=== PATIENT | male | born 1945 | race Hispanic/Latino ===

== ENCOUNTER 2018-08-07 17:26 | Inpatient (IN) | payer MEDICARE, OTHER ==
[~2018-08-07 17:26] MED LIST: ceFAZolin 1 GM in Sodium Chloride 0.9% 100 ML IVPB ONE
--- NOTE | 2018-08-07 18:46 | ED PDOC ---
Upper Extremity Pain/Injury Time Seen by Provider: 08/07/18 18:00 Chief Complaint (Nursing): Finger,Hand,&Wrist Chief Complaint (Provider): Finger,Hand,&Wrist History Per: Patient History/Exam Limitations: no limitations Onset/Duration Of Symptoms: Hrs (x1) Current Symptoms Are (Timing): Still Present Additional Complaint(s): Patient is a 73 y/o male with no significant past medical history who presents to the ED for evaluation of left wrist and elbow injury s/p a fall an hour prior to arrival. Patient was stepping up onto a curb when he slipped on the snow and landed on his left arm. Patient reports swelling to both joints. Patient scales the pain in wrist as an 8/10 and the pain in elbow as a 6/10. Patient states since fall he has not been bale to move wrist and has not taken any medication for relief. Patient is right hand dominant. No other complaints. Denies head injury or LOC. No prior elbow or wrist surgery. PCP: Dr. Nicole Collins ([facility]) Past Medical History Reviewed: Historical Data, Nursing Documentation, Vital Signs Vital Signs: Last Vital Signs Temp 98 F 08/07/18 17:55 Pulse 98 H 08/07/18 17:55 Resp 20 08/07/18 17:55 BP 209/87 H 08/07/18 17:55 Pulse Ox 98 08/07/18 17:55 - Medical History PMH: No Chronic Diseases - Surgical History Surgical History: No Surg Hx - Family History Family History: States: No Known Family Hx - Home Medications Home Medications: Ambulatory Orders Medication Instructions Recorded RX: No Known Home Med 08/07/18 - Allergies Allergies/Adverse Reactions: Allergies Allergy/AdvReac Type Severity Reaction Status Date / Time No Known Allergies Allergy Verified 08/07/18 17:54 Review of Systems ROS Statement: Except As Marked, All Systems Reviewed And Found Negative Musculoskeletal: Positive for: Arm Pain (left wrist and elbow swelling/pain) Physical Exam - Reviewed Nursing Documentation Reviewed: Yes Vital Signs Reviewed: Yes - Physical Exam Comments: GENERAL APPEARANCE: Patient is awake, alert, oriented x 3, uncomfortable appearing. SKIN: Warm, dry; (-) cyanosis. ENMT: Mucous membranes moist. Airway patent, (-) stridor. NECK: Supple, FROM CHEST AND RESPIRATORY: (-) rales, (-) rhonchi, (-) wheezes; breath sounds equal bilaterally. Respirations even and nonlabored. HEART AND CARDIOVASCULAR: (-) irregularity Left Wrist: (+) large effusion (+) diffuse tenderness (-) ROM secondary to pain (-) ecchymosis, (-) erythema (-) skin break. Digits and hand are non-tender with no deformity. Sensation intact throughout. Cap refill intact. (+) pulses. Left Elbow: (+)moderate effusion (+) tenderness to lateral and posterior aspects of elbow (+) decreased ROM secondary to pain (-) crepitus (-) erythema (-) ecchymosis. Sensation intact throughout (+) pulses. NEURO AND PSYCH: Mental status as above; (-) focal findings. Gait: steady. Speech: clear. (-) facial asymmetry (-) aphasia. - Laboratory Results Result Diagrams: 08/07/18 21:14 08/07/18 21:14 - ECG O2 Sat by Pulse Oximetry: 98 (RA) Pulse Ox Interpretation: Normal Medical Decision Making Medical Decision Making: Time: 1809 Impression: Acute wrist and elbow injury s/p fall Plan: Ultram 100 mg PO Elbow Left 3 Views Routine [Rad] Wrist, Left 3 Views [Rad] Re-evaluation 1899 Wrist XR: (+) comminuted, displaced distal radius fracture as read by Fabian CUI Elbow XR: possible supracondylar fracture as read by Fabian CUI Case discussed with ED MD Owens who recommends CT elevation of both joints. Patient declining additional pain medication on re-evaluation. Reports no other complaints at this time. [address] Time: [address] scan. Requesting additional pain medication. IV access established. 1L NS, Zofran 4mg IVP, and Morphine 2mg IVP ordered. Time: [address] Bowser, who recommends long arm posterior splint and sugartong splint to left upper extremity. Admission to hospitalist. Consult placed to hospitalist. Repeat BP: 129/59 Repeat HR: 65 Time: 2049 Case discussed with hospitalist, Dr Coleman. Agreeable to admission. Arrangements made for admission to med/surg. Patient agreeable to admission. sales and service technician Miriam at bedside to place splint. Pre-op labs ordered. CXR, EKG ordered. NPO past midnight. 2109 CT reviewed, [facility] radiology report follows EXAM: CT left Elbow, without IV contrast CLINICAL HISTORY: Displaced lt wrist fx. r/o elbow fx TECHNIQUE: Axial images were acquired through the left elbow without IV contrast. Reformatted images were reviewed. 580.85 mGy-cm COMPARISON: Compared with radiographic evaluation of the left elbow and wrist performed earlier the same date. FINDINGS: BONES: An area of false intra-articular fracture is seen to involve the coronoid process of the ulna. A comminuted partially impacted fracture of the distal left radius is again noted. There is dorsal tilting of the distal radial fracture fragments relative to the radial diaphysis. JOINTS: There is posterior inferior displacement of the trochlear notch/olecranon process relative to the distal humerus. Associated hemarthrosis is present within the elbow joint. SOFT TISSUES: The soft tissues are unremarkable. IMPRESSION: 1. An intra-articular avulsion fracture is seen to involve the coronoid process of the ulna. 2. Posterior inferior displacement of the trochlear notch/olecranon process relative to the distal humerus. 3. Associated hemarthrosis within the joint space. 4. Comminuted partially impacted fracture of the distal radius. Electronically signed on Aug 07, 2018 9:10:10 PM EST by: Uli Rowan M.D., JORGE Certified By [facility] Fellowship Trained MRI and CT Specialist 2134 Splint/sling placement verified by Fabian CUI. NV intact s/p placement. 2214 EKG: NSR @ 76bpm, QTc 495, (+) LAD (+) LBBB Scribe Attestation: Documented by Brendan Leos, acting as a scribe for MONIE Soto. Provider Scribe Attestation: All medical record entries made by the Scribe were at my direction and personally dictated by me. I have reviewed the chart and agree that the record accurately reflects my personal performance of the history, physical exam, medical decision making, and the department course for this patient. I have also personally directed, reviewed, and agree with the discharge instructions and disposition. Disposition - Clinical Impression Clinical Impression: Distal radius fracture, left, Fracture of scaphoid of left wrist, Left elbow pain, Fall on snow, Left elbow fracture - Patient ED Disposition Is Patient to be Admitted: Yes Discussed With : Beto Bowser III Doctor Will See Patient In The: Hospital Counseled Patient/Family Regarding: Studies Performed, Diagnosis - Disposition Disposition Time: 20:50 Condition: STABLE - Pt Status Changed To: Hospital Disposition Of: Inpatient (med/surg) - Admit Certification Admit to Inpatient:: After my assessment, the patient will require hospitali zation for at least two midnights. This is because of the severity of symptoms shown, intensity of services needed, and/or the medical risk in this patient being treated as an outpatient. - POA Present On Arrival: Falls Or Trauma
[2018-08-07] MEDS ORDERED: Sodium Chloride 0.9% 1,000 ML IV SCH (20:15)
[2018-08-07 21:22] LABS: BASO % 0.2 % (0.0-2.0); HEMOGLOBIN 14.8 g/dL (12.0-18.0); LYMPH # 1.1 K/uL (1.0-4.3); MEAN CELL VOLUME 98.5 fl (80.0-94.0); MEAN CORPUSCULAR HEMOGLOBIN 33.7 pg (27.0-31.0); MEAN CORPUSCULAR HGB CONC 34.2 g/dL (33.0-37.0); MEAN PLATELET VOLUME 8.2 fl (7.2-11.7); MONO # 0.5 K/uL (0.0-0.8); MONO % 4.3 % (0.0-10.0); NEUT # 9.1 K/uL (1.8-7.0); NEUT % 85.5 % (50.0-75.0); RBC 4.4 Mil/uL (4.40-5.90); RED CELL DISTRIBUTION WIDTH 12.9 % (11.5-14.5); WHITE BLOOD COUNT 10.6 K/uL (4.8-10.8)
[2018-08-07] MEDS ORDERED: Morphine 4 MG/ML VIAL IVP STA (21:34)
--- NOTE | 2018-08-07 21:37 | CP.PCM.HP ---
<Ej Pak - Last Filed: 08/07/18 22:51> History of Present Illness - History of Present Illness History of Present Illness: 73 y/o M presented to ED after falling and sitting on his L arm a few hours ago. Patient explains he was stepping up slowly onto a curb when he slipped on the s now and landed on his left arm. Pt reports L wrist pain and swelling, unable to move his L wrist and L hand digits due to pain, sensation is intact. Pt denies fever, chills, LOC, seizure-like activity, cough, chest pain, SOB, palpitations, N/V or lower leg edema. PCP: Dr. Nicole Collins NKDA Meds: None. (Herbal medicine which includes: [place], vitamin K and kyolic garlic) -PMHx: Pt diagnosed with HTN and HLD many years ago. Pt stopped allopathic drugs medications, and was able to control his chronic disease with diet, exercise and herbal medications. -PSHx: No major surgeries. L fifth toe ingrown-nail repair. -FHx: Unknown -SHx: No tobacco. 1-2 beers daily. Pt smokes cannabis once every 6-8 months, last used 1 week ago. At ED: --Vital signs showed elevated BP 209/87 and high borderline HR 98.(possibly due to pain). Repeat VS were WNL. --CBC, coag profile were unremarkable. --CMP showed mild hypokalemia. --CXR reviewed. EKG pending. --Wrist XR: (+) comminuted, displaced distal radius fracture. --Elbow XR: possible supra-condylar fracture. --CT of L elbow: intra-articular avulsion fracture in the coronoid process of the ulna, posterior inferior displacement of the trochlear notch/olecranon process relative to distal humerus, hemarthrosis w/in joint, comminuted partially impacted fracture of distal radius. Present on Admission - Present on Admission Any Indicators Present on Admission: No History of DVT/PE: No Review of Systems - Constitutional Constitutional: absent: Chills, Weakness - EENT Nose/Mouth/Throat: absent: Epistaxis, Nasal Congestion, Sore Throat, Neck Pain - Cardiovascular Cardiovascular: absent: Chest Pain, Claudication, Dyspnea, Leg Edema - Respiratory Respiratory: absent: Cough, Dyspnea, Hemoptysis, Wheezing - Gastrointestinal Gastrointestinal: absent: Abdominal Pain, Constipation, Cramping, Diarrhea, N ausea, Vomiting - Genitourinary Genitourinary: absent: Dysuria, Hematuria, Urinary Frequency Meds Allergies/Adverse Reactions: Allergies Allergy/AdvReac Type Severity Reaction Status Date / Time No Known Allergies Allergy Verified 08/07/18 17:54 Physical Exam - Constitutional Appears: Well, No Acute Distress - Head Exam Head Exam: ATRAUMATIC, NORMAL INSPECTION - Eye Exam Eye Exam: EOMI, Normal appearance - ENT Exam ENT Exam: Mucous Membranes Moist - Neck Exam Neck exam: Positive for: Full Rom, Normal Inspection. Negative for: Meningismus, Tenderness - Respiratory Exam Respiratory Exam: NORMAL BREATHING PATTERN. absent: Decreased Breath Sounds, Rhonchi, Wheezes, Respiratory Distress - Cardiovascular Exam Cardiovascular Exam: REGULAR RHYTHM, +S1, +S2 - GI/Abdominal Exam GI & Abdominal Exam: Soft. absent: Distended, Guarding, Rebound, Rigid, Tenderness - Extremities Exam Extremities exam: Positive for: full ROM, normal inspection. Negative for: calf tenderness, pedal edema - Neurological Exam Neurological exam: Alert, Oriented x3 - Psychiatric Exam Psychiatric exam: Normal Affect, Normal Mood Results - Vital Signs Recent Vital Signs: Last Vital Signs Temp 98 F 08/07/18 17:55 Pulse 65 08/07/18 20:52 Resp 16 08/07/18 20:52 BP 129/59 L 08/07/18 20:52 Pulse Ox 98 08/07/18 21:36 - Labs Result Diagrams: 08/07/18 21:14 08/07/18 21:14 Labs: Laboratory Results - last 24 hr 08/07/18 21:14 WBC 10.6 RBC 4.40 Hgb 14.8 Hct 43.4 MCV 98.5 H MCH 33.7 H MCHC 34.2 RDW 12.9 Plt Count 287 MPV 8.2 Neut % (Auto) 85.5 H Lymph % (Auto) 10.0 L [place] % (Auto) 4.3 Eos % (Auto) 0.0 Baso % (Auto) 0.2 Neut # (Auto) 9.1 H Lymph # (Auto) 1.1 [place] # (Auto) 0.5 Eos # (Auto) 0.0 Baso # (Auto) 0.0 Assessment & Plan - Assessment and Plan (Free Text) Assessment: 73 y/o M presented to ED after falling and landing on his L arm around 4pm, is admitted for evaluation and management of L ulna and radius fractures as appreciated on X-ray's and CT scan. --Wrist XR: (+) comminuted, displaced distal radius fracture. --Elbow XR: possible supra-condylar fracture. --CT of L elbow: intra-articular avulsion fracture in the coronoid process of the ulna, posterior inferior displacement of the trochlear notch/olecranon process relative to distal humerus, hemarthrosis w/in joint, comminuted partially impacted fracture of distal radius. PLAN: >Fractures of left displaced distal radius and left intra-articular proximal ulna. --Stable --Labwork reviewed --EKG pending. CXR final report pending. --Orthopedic Surgery consult, Dr Bowser. --Possible surgery tomorrow --NPO after midnight --IV fluids: D5-1/2NS-20mEqKCL at 125 mL/hr. >Hypokalemia --K+ 3.4 --IV fluids: D5-1/2NS-20mEqKCL at 125 mL/hr. --Repeat BMP in the morning. >Hx of HTN and HLD. --Chronic, controlled with lifestyle modification and herbal medicine. --Elevated BP at presentation. likely due to pain. --F/U vital signs. >DVT Prophylaxis --SCD's for now, --No anticoagulation as surgery tomorrow. Case discussed with Dr Em Munoz PGY-2 - Date & Time Date: 08/07/18 Time: 22:00 <Em Coleman - Last Filed: 08/09/18 06:41> Results - Vital Signs Recent Vital Signs: Last Vital Signs Temp 97.8 F 08/09/18 03:27 Pulse 69 08/09/18 03:27 Resp 20 08/09/18 03:27 BP 158/69 H 08/09/18 03:27 Pulse Ox 97 08/09/18 03:27 - Labs Result Diagrams: 08/07/18 21:14 08/08/18 06:30 Labs: Laboratory Results - last 24 hr 08/08/18 08/09/18 06:30 05:35 Sodium 134 Potassium 3.5 L Chloride 96 L Carbon Dioxide 28 Anion Gap 14 BUN 13 Creatinine 0.8 Est GFR ( Amer) > 60 Est GFR (Non-Af Amer) > 60 Random Glucose 93 Calcium 9.0 Triglycerides 115 Cholesterol 206 H HDL Cholesterol 60 Attending/Attestation - Attestation I have personally seen and examined this patient.: Yes I have fully participated in the care of the patient.: Yes I have reviewed all pertinent clinical information: Yes Notes (Text): 08/09/18 06:41 agree with findings and plan as above.
[2018-08-07 21:47] LABS: BLOOD UREA NITROGEN 17 mg/dl (9-20); GFR NON-AFRICAN AMERICAN > 60
[2018-08-07 21:48] LABS: ALB/GLOB RATIO 1.4 (1.0-2.1); ALBUMIN 4.5 g/dL (3.5-5.0); ALT/SGPT 33 U/L (21-72); AST/SGOT 30 U/L (17-59); CALCIUM 9.7 mg/dL (8.4-10.2)
[2018-08-07 21:51] LABS: INR 1.1; PARTIAL THROMBOPLASTIN TIME 27.6 Seconds (25.6-37.1)
[2018-08-07] MEDS: Potassium Ch 20mEq in D5-1/2NS 1,000 ML IV SCH ×2 (23:44→23:59)
[2018-08-08 07:19] LABS: BLOOD UREA NITROGEN 13 mg/dl (9-20); GFR NON-AFRICAN AMERICAN > 60
--- NOTE | 2018-08-08 08:11 | CP.PCM.CON ---
History of Present Illness - History of Present Illness History of Present Illness: Orthopedic consult: Dr. 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 He reports slipping and falling yesterday, around 4PM, on an icy surface landing with left arm behind him. He denies any other injuries/LOC. He presented to [facility] ER and was placed in a long arm splint for L wrist and elbow fx. Currently, his pain is controlled, dull, intermittent to both wrist and elbow. The pain is associated with swelling and worsens with movement. Pain is alleviated with rest and pain medications. He denies numbness/tingling to LUE. He notes history of HTN but has been treating through holistic means over the past few years. He currently denies CP/SOB/N/V/D/fever/dysuria/melena. PMH: HTN, HLD PSH: none Meds: Herbal meds: [place], vitamin K and kyolic garlic NKDA SHx: Denies tobacco. 1-2 beers daily. cannabis once every 6-8 months Review of Systems - Review of Systems All systems: reviewed and no additional remarkable complaints except Review of Systems: as per HPI Past Patient History - Past Medical History & Family History Past Medical History?: No Past Family History: Reviewed and not pertinent - Past Social History Alcohol: < 2 Drinks/Day Drugs: Cannabis - MUSCULOSKELETAL/RHEUMATOLOGICAL Hx Falls: Yes - PSYCHIATRIC Hx Substance Use: Yes (Cannibis) - ANESTHESIA Hx Anesthesia: No Hx Anesthesia Reactions: No Meds Allergies/Adverse Reactions: Allergies Allergy/AdvReac Type Severity Reaction Status Date / Time No Known Allergies Allergy Verified 08/07/18 17:54 - Medications Medications: Current Medications Potassium Chloride/Dextrose/Sod Cl (Potassium Chl 20 Meq In D5-1/2ns) 1,000 mls @ 125 mls/hr IV .Q8H BEV Stop: 08/08/18 21:59 Last Admin: 08/07/18 23:59 Dose: 125 mls/hr Ketorolac Tromethamine (Toradol) 30 mg IVP Q6 PRN PRN Reason: Pain, severe (8-10) Last Admin: 08/08/18 02:15 Dose: 30 mg Ketorolac Tromethamine (Toradol) 15 mg IVP Q6 PRN PRN Reason: Pain, moderate (4-7) Physical Exam - Constitutional Appears: Well, No Acute Distress - Head Exam Head Exam: ATRAUMATIC, NORMOCEPHALIC - Eye Exam Eye Exam: EOMI, Normal appearance, PERRL - ENT Exam ENT Exam: Mucous Membranes Moist - Respiratory Exam Respiratory Exam: NORMAL BREATHING PATTERN - Extremities Exam Additional comments: LUE: long arm splint intact sensation intact MN/UN/RN motor intact MN/UN/RN with some limitation 2nd to pain 2 sec cap refill all fingers - Neurological Exam Neurological exam: Alert, Oriented x3 - Psychiatric Exam Psychiatric exam: Normal Affect, Normal Mood - Skin Skin Exam: Normal Color, Warm Results - Vital Signs Recent Vital Signs: Last Vital Signs Temp 97.4 F L 08/08/18 00:07 Pulse 81 08/08/18 03:20 Resp 20 08/08/18 00:54 BP 157/65 H 08/08/18 03:20 Pulse Ox 96 08/08/18 00:54 - Labs Result Diagrams: 08/07/18 21:14 08/08/18 06:30 Labs: Laboratory Results - last 24 hr 08/07/18 08/07/18 08/07/18 21:14 21:14 21:14 WBC 10.6 RBC 4.40 Hgb 14.8 Hct 43.4 MCV 98.5 H MCH 33.7 H MCHC 34.2 RDW 12.9 Plt Count 287 MPV 8.2 Neut % (Auto) 85.5 H Lymph % (Auto) 10.0 L [place] % (Auto) 4.3 Eos % (Auto) 0.0 Baso % (Auto) 0.2 Neut # (Auto) 9.1 H Lymph # (Auto) 1.1 [place] # (Auto) 0.5 Eos # (Auto) 0.0 Baso # (Auto) 0.0 PT 12.0 INR 1.1 APTT 27.6 Sodium 136 Potassium 3.4 L Chloride 96 L Carbon Dioxide 24 Anion Gap 19 BUN 17 Creatinine 0.7 L Est GFR ( Amer) > 60 Est GFR (Non-Af Amer) > 60 Random Glucose 97 Calcium 9.7 Total Bilirubin 0.5 AST 30 ALT 33 Alkaline Phosphatase 59 Total Protein 7.8 Albumin 4.5 Globulin 3.3 Albumin/Globulin Ratio 1.4 Blood Type Blood Type Confirm Antibody Screen BBK History Checked 08/07/18 08/07/18 08/08/18 21:14 23:18 06:30 WBC RBC Hgb Hct MCV MCH MCHC RDW Plt Count MPV Neut % (Auto) Lymph % (Auto) [place] % (Auto) Eos % (Auto) Baso % (Auto) Neut # (Auto) Lymph # (Auto) [place] # (Auto) Eos # (Auto) Baso # (Auto) PT INR APTT Sodium 134 Potassium 3.5 L Chloride 96 L Carbon Dioxide 28 Anion Gap 14 BUN 13 Creatinine 0.8 Est GFR ( Amer) > 60 Est GFR (Non-Af Amer) > 60 Random Glucose 93 Calcium 9.0 Total Bilirubin AST ALT Alkaline Phosphatase Total Protein Albumin Globulin Albumin/Globulin Ratio Blood Type A POSITIVE Blood Type Confirm A POSITIVE Antibody Screen Negative BBK History Checked No verified bt - Impressions Impression: Accession No. : [id number] Patient Name / ID : KELLY Hernandez / [id number] Exam Date : 08/07/2018 18:23:53 ( Approved ) Study Comment : Sex / Age : M / 73Y Creator : Dictator : Anthony Ghotra MD Business Records Manager : Rough Rounder Machine : Anthony Ghotra MD Approver2 : Report Date : My Comment : Date of service: 08/07/2018 PROCEDURE: Left Wrist Radiographs. HISTORY: s/p fall, joint pain COMPARISON: None. FINDINGS: BONES: There is a comminuted impacted fracture of the distal left radius with dorsal angulation of distal fragment. Surrounding soft tissue swelling present. JOINTS: Normal. No dislocation. SOFT TISSUES: As above. OTHER FINDINGS: None. IMPRESSION: Comminuted impacted fracture of the distal left radius with dorsal angulation of distal fragment and surrounding soft tissue swelling. Accession No. : [id number] Patient Name / ID : KELLY Hernandez / [id number] Exam Date : 08/07/2018 18:26:40 ( Approved ) Study Comment : Sex / Age : M / Y Creator : Dictator : Anthony Ghotra MD Business Records Manager : Rough Rounder Machine : Anthony Ghotra MD Approver2 : Report Date : My Comment : Date of service: 08/07/2018 PROCEDURE: Radiographs of the left elbow. HISTORY: s/p fall, joint pain and swelling COMPARISON: No prior. FINDINGS: BONES: Appears to be a fracture of the coronoid process JOINTS: Joint spaces appear intact so far as can be seen SOFT TISSUES: Normal. JOINT EFFUSION: None. OTHER FINDINGS: None IMPRESSION: There an apparent fracture of the coronoid process.. Consider followup CT scan of the left elbow. Accession No. : [id number] Patient Name / ID : KELLY Hernandez / [id number] Exam Date : 08/07/2018 19:51:24 ( Approved ) Study Comment : Sex / Age : M / 3Y Creator : Uli Snowden MD Dictator : Uli Snowden MD Business Records Manager : Rough Rounder Machine : Uli Snowden MD Approver2 : Report Date : 08/08/2018 15:26:33 My Comment : Date of service: 08/07/2018 PROCEDURE: LEFT ELBOW CT WITHOUT CONTRAST HISTORY: displaced wrist fracture, r/o elbow fracture COMPARISON: Left ankle radiographs 08/07/2018. TECHNIQUE: Volumetric CT acquisition through the left elbow was performed without intravenous contrast. Imaging of the forearm and wrist was also performed. Reformatted dataset provided multiple projections and renderings. Radiation dose:Total exam DLP = 580.85 mGy-cm. This CT exam was performed using one or more of the following dose reduction techniques: Automated exposure control, adjustment of the mA and/or kV according to patient size, and/or use of iterative reconstruction technique. FINDINGS: There is a small comminuted intra-articular fracture of the coronoid process of the proximal ulna with a large joint effusion un seeding the ulna from its normal articulation with the distal humerus. The ulna does not appear dislocated but is subluxed posteromedially. A tiny chip fracture seen related to the lateral margins of the proximal ulna as well. The distal humerus appears intact as well as the proximal radius. Local soft tissue edema is identified. A comminuted fracture of the distal radius is appreciated with dorsal angulation and distraction compatible with Colles fracture. No definitive carpal bone appreciable grossly. IMPRESSION: 1. A small comminuted intra-articular fracture of the coronoid process of the proximal ulna is identified a large joint effusion/hemarthrosis resulting in subluxation of the proximal ulna relative to the distal humerus posteromedially. Radial head appears intact. 2. Comminuted impacted Colles fracture distal left radius without dislocation. No definite carpal bone fracture identified. Concordant preliminary report from [facility], 08/07/2018, 9:10 p.m.. Assessment & Plan (1) Distal radius fracture, left Assessment and Plan: -Dr. Bowser recommends L distal radius fx ORIF -NPO -awaiting medical clearance -awaiting cardiac clearance, Dr. Heller -above d/w Dr. Bowser in agreement Status: Acute (2) Fracture of scaphoid of left wrist Status: Acute (3) Fx coronoid proc ulna-closed Status: Acute
[2018-08-08] MEDS ORDERED: Oxycodone/Acetaminophen 5/325 mg Tab PO PRN ×4 (08:58→16:21)
--- NOTE | 2018-08-08 10:09 | CP.PCM.PN ---
Subjective - Date & Time of Evaluation Date of Evaluation: 08/08/18 Time of Evaluation: 09:58 - Subjective Subjective: 73 y/o M patient seen ad evaluated in the bedside for Left wrist fracture. Patient was sitting in his bed comfortably and NAD. Patient is AAOX3. Patient states that his wrist pain is now well controlled. He denies any overnight acute events. he denies any overnight F/N/V/C/CP/SOB/Constipation/Diarrhea or urnary symptoms. Patient confirmed his NPO status. Patient is aware with his surgery to fix his his left wrist today. Objective - Vital Signs/Intake and Output Vital Signs (last 24 hours): Temp Pulse Resp BP Pulse Ox 98.3 F 80 20 192/88 H 99 08/08/18 08:26 08/08/18 08:26 08/08/18 08:26 08/08/18 08:26 08/08/18 08:26 - Medications Medications: Current Medications Acetaminophen (Tylenol 325mg Tab) 650 mg PO Q6 PRN PRN Reason: Pain, Mild (1-3) Potassium Chloride/Dextrose/Sod Cl (Potassium Chl 20 Meq In D5-1/2ns) 1,000 mls @ 125 mls/hr IV .Q8H BEV Stop: 08/08/18 21:59 Last Admin: 08/07/18 23:59 Dose: 125 mls/hr Metoprolol Succinate (Toprol Xl) 50 mg PO DAILY [facility] Oxycodone/Acetaminophen (Percocet 5/325 Mg Tab) 1 tab PO Q6 PRN PRN Reason: Pain, moderate (4-7) Stop: 08/11/18 08:59 Oxycodone/Acetaminophen (Percocet 5/325 Mg Tab) 2 tab PO Q6 PRN PRN Reason: Pain, severe (8-10) Stop: 08/11/18 09:00 - Labs Labs: 08/07/18 21:14 08/08/18 06:30 PT 12.0 Seconds (9.8-13.1) 08/07/18 21:14 INR 1.1 08/07/18 21:14 APTT 27.6 Seconds (25.6-37.1) 08/07/18 21:14 - Constitutional Appears: Well, Non-toxic, No Acute Distress - Head Exam Head Exam: ATRAUMATIC, NORMOCEPHALIC - Eye Exam Eye Exam: EOMI, Normal appearance, PERRL Pupil Exam: NORMAL ACCOMODATION, PERRL - ENT Exam ENT Exam: Mucous Membranes Moist, Normal Exam - Neck Exam Neck Exam: Full ROM, Normal Inspection - Respiratory Exam Respiratory Exam: Clear to Ausculation Bilateral, NORMAL BREATHING PATTERN - Cardiovascular Exam Cardiovascular Exam: REGULAR RHYTHM, +S1, +S2 - GI/Abdominal Exam GI & Abdominal Exam: Soft, Normal Bowel Sounds - Extremities Exam Extremities Exam: Normal Capillary Refill Additional comments: Left wrist is splinted. Splint is C/D/I - Back Exam Back Exam: NORMAL INSPECTION - Neurological Exam Neurological Exam: Alert, Awake, Oriented x3 Neuro motor strength exam: Left Upper Extremity: 5, Right Upper Extremity: 5, Left Lower Extremity: 5, Right Lower Extremity: 5 - Psychiatric Exam Psychiatric exam: Normal Affect, Normal Mood - Skin Skin Exam: Dry, Intact, Normal Color, Warm Assessment and Plan - Assessment and Plan (Free Text) Assessment: 73 y/o M patient with PMH of HTN and HLD admitted for evaluation and management of L ulna and radius displaced fractures at the wrist level as appreciated on X- ray's and CT scan. --Wrist XR: (+) comminuted, displaced distal radius fracture. --Elbow XR: possible supra-condylar fracture. --CT of L elbow: intra-articular avulsion fracture in the coronoid process of the ulna, posterior inferior displacement of the trochlear notch/olecranon process relative to distal humerus, hemarthrosis w/in joint, comminuted partially impacted fracture of distal radius. Plan: >Fractures of left displaced distal radius and left intra-articular proximal ulna. --Stable --Labwork reviewed --EKG report pending. --Eccho ordered: Pending report --Cardiology consult; Reccs appreciated, Pending cardiac clearance for surgery. --CXR final report pending. --Orthopedic Surgery consult, Dr Bowser; Reccs appreciated. --Possible surgery today after clearance. --NPO started at midnight --C/W IV fluids. >Hypokalemia --K+ 3.4 --C/W IV fluids. >Hx of HTN and HLD. --Chronic, controlled with lifestyle modification and herbal medicine. --EKG report pending. --Eccho ordered: Pending report --Cardiology consult; Reccs appreciated, Pending cardiac clearance for surgery. --F/U vital signs. >DVT Prophylaxis --SCD's for now.
[2018-08-08] MEDS: Metoprolol Succinate 50 mg XL Tab PO SCH (10:15)
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
--- NOTE | 2018-08-08 11:22 | CARD ---
APPROVED REPORT Date of service: 08/07/2018 EKG Measurement Heart [id number] <Conclusion> Normal sinus rhythm with sinus arrhythmia Left axis deviation Left bundle branch block Abnormal ECG
[2018-08-08] MEDS ORDERED: Ropivacaine 0.5% 30ML IV ONE (12:02)
[2018-08-08] MEDS ORDERED: Rocuronium 10 mg/ml (5 ml) ONE (12:08)
[2018-08-08] MEDS ORDERED: Succinylcholine Chloride 20 mg/ml Syr (5 ml) IV ONE (12:08)
[2018-08-08] MEDS ORDERED: Etomidate 20 mg/10ml Inj IV ONE (12:08)
[2018-08-08] MEDS ORDERED: Lidocaine 4% (Laryng-O-Jet) Kit MM ONE (12:08)
[2018-08-08] MEDS ORDERED: Propofol 10 mg/ml Inj (20 ML) ONE (12:08)
--- NOTE | 2018-08-08 12:39 | CARD ---
APPROVED REPORT Date of service: 08/08/2018 EXAM: Two-dimensional and M-mode echocardiogram with Doppler and color Doppler. Other Information Quality : GoodRhythm : LBBB Technically limited study due to Limited short axis due to poor window. INDICATION Abnormal EKG/Arrhythmia Pre-Op 2D DIMENSIONS IVSd1.29 (0.7-1.1cm)LVDd3.91 (3.9-5.9cm) LVOT Diameter1.96 (1.8-2.4cm)PWd1.64 (0.7-1.1cm) IVSs1.36 (0.8-1.2cm)LVDs3.77 (2.5-4.0cm) FS (%) 3.5 %PWs1.42 (0.8-1.2cm) M-Mode DIMENSIONS Left Atrium (MM)3.26 (2.5-4.0cm)IVSd1.47 (0.7-1.1cm) Aortic Root2.76 (2.2-3.7cm)LVDd2.65 (4.0-5.6cm) Aortic Cusp Exc.1.06 (1.5-2.0cm)PWd1.41 (0.7-1.1cm) IVSs1.24 cmFS (%) 24 % LVDs2.00 (2.0-3.8cm)PWs1.53 cm Aortic Valve AoV Peak Xhsiawdj439.5cm/sAoV VTI29.7cmAO Peak GR.11mmHg LVOT Peak Icjlandq90.8cm/sLVOT VTI18.82cmAO Mean GR.6mmHg ULYSSES (VMAX)0.59ps8FEX (VTI)1.07cm2 Mitral Valve MV E Aaberuys68.3cm/sMV DECEL [id number] A Wlwwftsl62.9cm/s MV RJL88wbM/A ratio0.8MVA (PHT)4.16cm2 TDI E/Lateral E'0.0E/Medial E'0.0 Tricuspid Valve TR Peak Krldcrjv677bv/sRAP BZVXIONY24dqWcLN Peak Gr.9mmHg IZNS15sqEx LEFT VENTRICLE The left ventricle is normal size. There is mild concentric left ventricular hypertrophy. The systolic function is mildly impaired. The estimated ejection fraction is 45-50 % There is mild anterior wall hypokinesis. There is paradoxical motion of septum from underlying LBBB. Transmitral Doppler flow pattern is Grade I-abnormal relaxation pattern. No left ventricle thrombus noted on this study. There is no ventricular septal defect visualized. There is no left ventricular aneurysm. There is no mass noted in the left ventricle. RIGHT VENTRICLE The right ventricle is normal size. There is normal right ventricular wall thickness. The right ventricular systolic function is normal. ATRIA The left atrium is mildly dilated. The right atrium size is normal. The interatrial septum is intact with no evidence for an atrial septal defect. AORTIC VALVE The aortic valve is normal in structure. Mild to moderate aortic regurgitation is present. There is no aortic valvular stenosis. There is no aortic valvular vegetation. MITRAL VALVE The mitral valve is normal in structure. There is no evidence of mitral valve prolapse. There is no mitral valve stenosis. There is trace to mild mitral valve regurgitation noted. TRICUSPID VALVE The tricuspid valve is normal in structure. There is trivial tricuspid valve regurgitation noted. RVSP is calculated at < 20 mm Hg. There is no tricuspid valve prolapse or vegetation. There is no tricuspid valve stenosis. PULMONIC VALVE The pulmonary valve is normal in structure. There is no pulmonic valvular regurgitation. There is no pulmonic valvular stenosis. GREAT VESSELS The aortic root is normal in size. The ascending aorta is normal in size. The pulmonary artery is normal. The IVC is normal in size and collapses >50% with inspiration. PERICARDIAL EFFUSION There is no pericardial effusion. There is no pleural effusion. <Conclusion> There is mild concentric left ventricular hypertrophy. The systolic function is mildly impaired. The estimated ejection fraction is 45-50 % There is mild anterior wall hypokinesis. There is paradoxical motion of septum from underlying LBBB. Transmitral Doppler flow pattern is Grade I-abnormal relaxation pattern. The left atrium is mildly dilated. Mild to moderate aortic regurgitation is present. There is trace to mild mitral valve regurgitation noted. There is trivial tricuspid valve regurgitation noted. RVSP is calculated at < 20 mm Hg.
[2018-08-08] MEDS ORDERED: Midazolam 2 MG/2 ML VIAL ONE (12:45)
[2018-08-08] MEDS ORDERED: Lactated Ringer's 1,000 ML IV ONE ×2 (12:45→15:25)
--- NOTE | 2018-08-08 13:07 | RAD ---
Date of service: 08/07/2018 HISTORY: pre-op COMPARISON: No prior. FINDINGS: LUNGS: Lung sotomayor appear hyperinflated; rule out chronic changes of COPD. There may be some minor linear atelectasis in the left mid lung base region. Note that the right CP angle is partially obscured by overlying left upper extremity-hand artifact. PLEURA: No significant pleural effusion identified, no pneumothorax apparent. CARDIOVASCULAR: Mild are aortic atherosclerotic calcification present. Normal cardiac size. No pulmonary vascular congestion. OSSEOUS STRUCTURES: No significant abnormalities. VISUALIZED UPPER ABDOMEN: Normal. OTHER FINDINGS: None. IMPRESSION: Linear atelectasis or scarring left mid lung base. Hyperinflation suggesting underlying chronic changes of COPD. Clinical correlation recommended.
[2018-08-08] MEDS ORDERED: Bupivacaine 0.5% Inj(30mL) ONE (13:09)
[2018-08-08] MEDS ORDERED: Lidocaine 1% Inj (20ml) ONE (13:09)
[2018-08-08] MEDS ORDERED: ePHEDrine 50 mg/ml Inj ONE (13:11)
--- NOTE | 2018-08-08 13:11 | RAD ---
Date of service: 08/07/2018 PROCEDURE: Left Wrist Radiographs. HISTORY: s/p fall, joint pain COMPARISON: None. FINDINGS: BONES: There is a comminuted impacted fracture of the distal left radius with dorsal angulation of distal fragment. Surrounding soft tissue swelling present. JOINTS: Normal. No dislocation. SOFT TISSUES: As above. OTHER FINDINGS: None. IMPRESSION: Comminuted impacted fracture of the distal left radius with dorsal angulation of distal fragment and surrounding soft tissue swelling.
--- NOTE | 2018-08-08 13:36 | RAD ---
Date of service: 08/07/2018 PROCEDURE: Radiographs of the left elbow. HISTORY: s/p fall, joint pain and swelling COMPARISON: No prior. FINDINGS: BONES: Appears to be a fracture of the coronoid process JOINTS: Joint spaces appear intact so far as can be seen SOFT TISSUES: Normal. JOINT EFFUSION: None. OTHER FINDINGS: None IMPRESSION: There an apparent fracture of the coronoid process.. Consider followup CT scan of the left elbow.
[2018-08-08] MEDS ORDERED: Neostigmine 1:1000 (1 mg/ml) Inj ONE (15:04)
[2018-08-08] MEDS ORDERED: Bacitracin Ointment 30 GM TUBE ONE (15:11)
[2018-08-08] MEDS ORDERED: Bacitracin OINT 15GM TOP ONE (15:15)
--- NOTE | 2018-08-08 15:29 | CT ---
Date of service: 08/07/2018 PROCEDURE: LEFT ELBOW CT WITHOUT CONTRAST HISTORY: displaced wrist fracture, r/o elbow fracture COMPARISON: Left ankle radiographs 08/07/2018. TECHNIQUE: Volumetric CT acquisition through the left elbow was performed without intravenous contrast. Imaging of the forearm and wrist was also performed. Reformatted dataset provided multiple projections and renderings. Radiation dose:Total exam DLP = 580.85 mGy-cm. This CT exam was performed using one or more of the following dose reduction techniques: Automated exposure control, adjustment of the mA and/or kV according to patient size, and/or use of iterative reconstruction technique. FINDINGS: There is a small comminuted intra-articular fracture of the coronoid process of the proximal ulna with a large joint effusion un seeding the ulna from its normal articulation with the distal humerus. The ulna does not appear dislocated but is subluxed posteromedially. A tiny chip fracture seen related to the lateral margins of the proximal ulna as well. The distal humerus appears intact as well as the proximal radius. Local soft tissue edema is identified. A comminuted fracture of the distal radius is appreciated with dorsal angulation and distraction compatible with Colles fracture. No definitive carpal bone appreciable grossly. IMPRESSION: 1. A small comminuted intra-articular fracture of the coronoid process of the proximal ulna is identified a large joint effusion/hemarthrosis resulting in subluxation of the proximal ulna relative to the distal humerus posteromedially. Radial head appears intact. 2. Comminuted impacted Colles fracture distal left radius without dislocation. No definite carpal bone fracture identified. Concordant preliminary report from [facility], 08/07/2018, 9:10 p.m..
--- NOTE | 2018-08-08 15:37 | PCM.SURG1 ---
Surgeon's Initial Post Op Note - Surgeon's Notes Surgeon: [place] Interpretive Ranger: MONICA Yuen/Angela Dave PA-C Type of Anesthesia: General Endo, Block Regional Anesthesia Administered By: DR Lana Dobson Pre-Operative Diagnosis: Displaced/comminuted distal radius fx L wrist Operative Findings: as above Post-Operative Diagnosis: as above. comp[ression median nerve with hematoma in carpal tunnel. tenosynvitis Operation Performed: ORIF displaced/comminuted distal radius fracture. release transverse carpal ligament. partial median neurolysis. partial flexor tenosynovectomy. applx long arm splint. evaluation L elbow under anesathesia Specimen/Specimens Removed: synvium. callous. bone Estimated Blood Loss: EBL {In ML}: 10 Blood Products Given: N/A Drains Used: No Drains Post-Op Condition: Fair Date of Surgery/Procedure: 08/08/18 Time of Surgery/Procedure: 13:50 (time in room 12:55/aneatshesia indcution time 12:55)
[2018-08-08] MEDS ORDERED: Lactated Ringer's 1,000 ML IV PRN (15:44)
[2018-08-08] MEDS ORDERED: HYDROmorphone 0.5 mg/0.5 ml ISec IVP PRN (15:44)
--- NOTE | 2018-08-08 17:04 | CP.PCM.PCO ---
Physician Communication Note - Physician Communication Note Physician Communication Note: Pt. ortho stable for d/c home today if CT elbow stable
--- NOTE | 2018-08-08 17:46 | RAD ---
Date of service: 08/08/2018 PROCEDURE: Left Wrist Radiographs. HISTORY: s/p L wrist ORIF COMPARISON: Preoperative study. August 07, 2018. FINDINGS: BONES: Satisfactory alignment of major fracture fragments following open reduction, internal fixation. JOINTS: Normal. No dislocation. SOFT TISSUES: Normal. OTHER FINDINGS: None. IMPRESSION: Satisfactory postoperative status.
[2018-08-09] MEDS ORDERED: Morphine 4 MG/ML VIAL IVP PRN (06:15)
[2018-08-09 06:37] LABS: HDL CHOLESTEROL 60 MG/DL (30-70)
[2018-08-09 06:48] LABS: LDL CHOLESTEROL 115 mg/dL (0-129)
[2018-08-09 08:20] VITALS: BP 162/72; RESP 18; TEMP 99.3; O2SAT 99
[2018-08-09] MEDS: Metoprolol Succinate 50 mg XL Tab PO SCH (09:14)
--- NOTE | 2018-08-09 09:35 | CP.PCM.DIS ---
Provider - Provider Date of Admission: 08/07/18 21:02 Attending physician: Em Coleman DO Consults: 08/07/18 20:50 Orthopedic Consult Stat Comment: Consulting Provider: Beto Hines III Consulting Physician: Beto Hines III Reason for Consult: displaced, comminuted wrist fracture, possible elbow fracture 08/08/18 01:31 Social Work Referral Routine Comment: Cannabis use every 6-8 months. Last 1 wk ago. Physician Instructions: Reason For Exam: Cannabis 08/08/18 08:21 Cardiology Consult Routine Comment: Consulting Provider: Alonso Heller Consulting Physician: Alonso Heller Reason for Consult: preop clearance Time Spent in preparation of Discharge (in minutes): 30 Hospital Course - Lab Results Lab Results: Most Recent Lab Values WBC 10.6 K/uL (4.8-10.8) 08/07/18 21:14 RBC 4.40 Mil/uL (4.40-5.90) 08/07/18 21:14 Hgb 14.8 g/dL (12.0-18.0) 08/07/18 21:14 Hct 43.4 % (35.0-51.0) 08/07/18 21:14 MCV 98.5 fl (80.0-94.0) H 08/07/18 21:14 MCH 33.7 pg (27.0-31.0) H 08/07/18 21:14 MCHC 34.2 g/dL (33.0-37.0) 08/07/18 21:14 RDW 12.9 % (11.5-14.5) 08/07/18 21:14 Plt Count 287 K/uL (130-400) 08/07/18 21:14 MPV 8.2 fl (7.2-11.7) 08/07/18 21:14 Neut % (Auto) 85.5 % (50.0-75.0) H 08/07/18 21:14 Lymph % (Auto) 10.0 % (20.0-40.0) L 08/07/18 21:14 [place] % (Auto) 4.3 % (0.0-10.0) 08/07/18 21:14 Eos % (Auto) 0.0 % (0.0-4.0) 08/07/18 21:14 Baso % (Auto) 0.2 % (0.0-2.0) 08/07/18 21:14 Neut # (Auto) 9.1 K/uL (1.8-7.0) H 08/07/18 21:14 Lymph # (Auto) 1.1 K/uL (1.0-4.3) 08/07/18 21:14 [place]pine # (Auto) 0.5 K/uL (0.0-0.8) 08/07/18 21:14 Eos # (Auto) 0.0 K/uL (0.0-0.7) 08/07/18 21:14 Baso # (Auto) 0.0 K/uL (0.0-0.2) 08/07/18 21:14 PT 12.0 Seconds (9.8-13.1) 08/07/18 21:14 INR 1.1 08/07/18 21:14 APTT 27.6 Seconds (25.6-37.1) 08/07/18 21:14 Sodium 134 mmol/l (132-148) 08/08/18 06:30 Potassium 3.5 MMOL/L (3.6-5.0) L 08/08/18 06:30 Chloride 96 mmol/L (98-107) L 08/08/18 06:30 Carbon Dioxide 28 mmol/L (22-30) 08/08/18 06:30 Anion Gap 14 (10-20) 08/08/18 06:30 BUN 13 mg/dl (9-20) 08/08/18 06:30 Creatinine 0.8 mg/dl (0.8-1.5) 08/08/18 06:30 Est GFR ( Amer) > 60 08/08/18 06:30 Est GFR (Non-Af Amer) > 60 08/08/18 06:30 Random Glucose 93 mg/dL (75-110) 08/08/18 06:30 Calcium 9.0 mg/dL (8.4-10.2) 08/08/18 06:30 Total Bilirubin 0.5 mg/dl (0.2-1.3) 08/07/18 21:14 AST 30 U/L (17-59) 08/07/18 21:14 ALT 33 U/L (21-72) 08/07/18 21:14 Alkaline Phosphatase 59 U/L (38-126) 08/07/18 21:14 Total Protein 7.8 G/DL (6.3-8.2) 08/07/18 21:14 Albumin 4.5 g/dL (3.5-5.0) 08/07/18 21:14 Globulin 3.3 gm/dL (2.2-3.9) 08/07/18 21:14 Albumin/Globulin Ratio 1.4 (1.0-2.1) 08/07/18 21:14 Triglycerides 115 mg/DL (0-149) 08/09/18 05:35 Cholesterol 206 mg/dL (0-199) H 08/09/18 05:35 LDL Cholesterol Direct 115 mg/dL (0-129) 08/09/18 05:35 HDL Cholesterol 60 MG/DL (30-70) 08/09/18 05:35 Blood Type A POSITIVE 08/07/18 21:14 Blood Type Confirm A POSITIVE 08/07/18 23:18 Antibody Screen Negative 08/07/18 21:14 BBK History Checked No verified bt 08/07/18 21:14 - Hospital Course Hospital Course: 73 y/o M patient with PMH of HTN and HLD admitted for evaluation and management of L ulna and radius displaced fractures at the wrist level as appreciated on X- ray's and CT scan. Patient had ORIF surgery of the left wrist yesterday. Patient was on Morphine and percocet 325/5mg for pain control and metoprolol 50 mg tablets PO QD for blood pressure control. During his hospital stay patient didn't have nay acute events. Patient to be discharged home on Percocet 325/5mg tablets Q4-6h PO PRN for pain. Metoprolol 50 mg PO QD and Norvasc 5 mg Po QD for blood pressure control. Patient to follow up with Dr. Hines within 1 week upon discharge from the hospital. Patient to follow up with his primary doctor for his uncontrolled blood pressure. Assessment: 73 y/o M patient with PMH of HTN and HLD admitted for evaluation and management of L ulna and radius displaced fractures at the wrist level as appreciated on X- ray's and CT scan. --Wrist XR: (+) comminuted, displaced distal radius fracture. --Elbow XR: possible supra-condylar fracture. --CT of L elbow: intra-articular avulsion fracture in the coronoid process of the ulna, posterior inferior displacement of the trochlear notch/olecranon process relative to distal humerus, hemarthrosis w/in joint, comminuted partially impacted fracture of distal radius. Plan: >Fractures of left displaced distal radius and left intra-articular proximal ulna. --Stable. --Patient went for surgery for L wrist ORIF yesterday. --OT saw and evaluate the patient. --Keep the L arm splint C/D/I. --Keep the arm elevated. --Rx; Percocet 325/5mg tablets Q4-6h PO PRN for pain. --Rx; Metoprolol 50 mg PO QD and --Rx; Norvasc 5 mg Po QD. --Patient to follow up with Dr. Hines within 1 week upon discharge from the hospital. --Patient to follow up with his primary doctor for his uncontrolled blood pressure. Discharge Exam - Head Exam Head Exam: ATRAUMATIC, NORMOCEPHALIC - Eye Exam Eye Exam: EOMI, Normal appearance, PERRL Pupil Exam: NORMAL ACCOMODATION, PERRL - ENT Exam ENT Exam: Normal Exam - Neck Exam Neck exam: Normal Inspection - Respiratory Exam Respiratory Exam: Clear to PA & Lateral, NORMAL BREATHING PATTERN, UNREMARKABLE - Cardiovascular Exam Cardiovascular Exam: REGULAR RHYTHM, +S1, +S2 - GI/Abdominal Exam GI & Abdominal Exam: Normal Bowel Sounds, Unremarkable - Extremities Exam Extremities exam: normal capillary refill Additional comments: L arm splint is C/D/I - Neurological Exam Neurological exam: Alert, Oriented x3 - Psychiatric Exam Psychiatric exam: Normal Affect, Normal Mood - Skin Skin Exam: Dry, Normal Color, Warm Discharge Plan - Discharge Medications Prescriptions: amLODIPine [Norvasc] 5 mg PO DAILY #30 tab Metoprolol Succinate XL [Toprol XL] 50 mg PO DAILY #30 tab oxyCODONE/Acetaminophen [Percocet 5/325 mg Tab] 1 tab PO Q4 PRN #30 tab PRN Reason: Pain, Severe (8-10) - Follow Up Plan Condition: STABLE Disposition: HOME/ ROUTINE Instructions: Radius Fracture (DC), Open Reduction and Internal Fixation Surgery (DC) Additional Instructions: follow up with primary MD and dr hines 1 week Referrals: Beto Hines III, MD [Staff Provider] - Nuha Collins MD [Non-Staff] -
--- NOTE | 2018-08-09 10:32 | CT ---
Date of service: 08/08/2018 PROCEDURE: CT LEFT ELBOW WITHOUT CONTRAST HISTORY: L coranoid process fx, post manipulation COMPARISON: CT Left Upper Extremity without contrast 08/07/2018. TECHNIQUE: Volume CT acquisition of the left elbow was performed without intravenous contrast as requested. Reformatted dataset provided in sagittal axial coronal planes by various rendering technique. Radiation dose:Total exam DLP = 244.81 mGy-cm. This CT exam was performed using one or more of the following dose reduction techniques: Automated exposure control, adjustment of the mA and/or kV according to patient size, and/or use of iterative reconstruction technique. FINDINGS: Comminuted fracture of the coronoid process of the proximal ulna is reiterated with main fracture fragment appearing appearing largely reduced in the interval. No new fracture appreciable. A small fragment off the anterior/proximal margins of the olecranon process is appreciated, not significantly changed in position. No subluxation or dislocation appreciable. Radial head remains intact and unremarkable appearing. Moderate hemarthrosis again evident. Limited peripheral soft tissue edema noted as well with polyurethane cast now placed at left forearm and elbow. IMPRESSION: Comminuted left ulnar coronoid process fracture again identified with major fracture fragment largely reduced in the interval. Tiny anterior/proximal olecranon process chip fracture again evident. No dislocation or subluxation evident. No new fracture appreciable. Hemarthrosis reiterated as well as peripheral soft tissue edema.
--- NOTE | 2018-08-09 10:38 | CP.PCM.PN ---
Subjective - Date & Time of Evaluation Date of Evaluation: 08/09/18 Time of Evaluation: 08:30 - Subjective Subjective: FEELS GOOD ONLY COMPLAINT IS SURGICAL SITE PAIN Objective - Vital Signs/Intake and Output Vital Signs (last 24 hours): Temp Pulse Resp BP Pulse Ox 99.3 F 57 L 18 162/72 H 99 08/09/18 08:19 08/09/18 09:14 08/09/18 08:19 08/09/18 09:14 08/09/18 08:19 Intake and Output: 08/09/18 08/09/18 06:59 18:59 Intake Total 1275 Output Total 800 Balance 475 - Medications Medications: Current Medications Acetaminophen (Tylenol 325mg Tab) 650 mg PO Q6 PRN PRN Reason: Pain, Mild (1-3) Amlodipine Besylate (Norvasc) 5 mg PO DAILY [facility] Last Admin: 08/09/18 09:12 Dose: 5 mg Hydromorphone HCl (Dilaudid) 0.5 mg IVP Q15M PRN PRN Reason: Pain, moderate (4-7) Metoprolol Succinate (Toprol Xl) 50 mg PO DAILY [facility] Last Admin: 08/09/18 09:14 Dose: 50 mg Morphine Sulfate (Morphine) 2 mg IVP Q4 PRN PRN Reason: Pain, severe (8-10) Last Admin: 08/09/18 06:09 Dose: 2 mg Ondansetron HCl (Zofran Inj) 4 mg IVP Q4 PRN PRN Reason: Nausea/Vomiting Oxycodone/Acetaminophen (Percocet 5/325 Mg Tab) 1 tab PO Q4 PRN PRN Reason: Pain, Mild (1-3) Stop: 08/11/18 16:22 Last Admin: 08/09/18 09:13 Dose: 1 tab Oxycodone/Acetaminophen (Percocet 5/325 Mg Tab) 2 tab PO Q4 PRN PRN Reason: Pain, moderate (4-7) Stop: 08/11/18 16:22 - Labs Labs: 08/07/18 21:14 08/08/18 06:30 PT 12.0 Seconds (9.8-13.1) 08/07/18 21:14 INR 1.1 08/07/18 21:14 APTT 27.6 Seconds (25.6-37.1) 08/07/18 21:14 - Respiratory Exam Respiratory Exam: Clear to Ausculation Bilateral - Cardiovascular Exam Cardiovascular Exam: REGULAR RHYTHM, +S1, +S2 - Extremities Exam Additional comments: NO LE EDEMA - Additional Findings Additional findings: OR NOTES REVIEWED WITH REPAIR OF LEFT DISTAL RADIUS FRACTURE LIPID PROFILE WIDTH CHOL OF 206 Assessment and Plan - Assessment and Plan (Free Text) Assessment: SURGICAL REPAIR OF LEFT WRIST FRACTURE HYPERTENSION MILD HYPERLIPIDEMIA Plan: FOR DISCHARGE TODAY WITH FU WITH DR GUZMAN
--- NOTE | 2018-08-09 11:09 | RAD ---
Date of service: 08/08/2018 PROCEDURE: Intraoperative Fluoroscopy. HISTORY: FLUORO FINDINGS: Fluoroscopic assistance was provided for open reduction left radial fracture. Total fluoroscopic time (continuous mode) utilized during the procedure 7.3 seconds. Please refer to the operative report from PHUONG Baltazar.
--- NOTE | 2018-08-09 13:07 | CP.PCM.PN ---
Subjective - Date & Time of Evaluation Date of Evaluation: 08/09/18 Time of Evaluation: 13:05 - Subjective Subjective: Patient states he has elbow and wrist pain, but controlled with medication. Denies numbness/tingling/CP/SOB/dizziness. Objective - Vital Signs/Intake and Output Vital Signs (last 24 hours): Temp Pulse Resp BP Pulse Ox 99.3 F 57 L 18 162/72 H 99 08/09/18 08:19 08/09/18 09:14 08/09/18 08:19 08/09/18 09:14 08/09/18 08:19 Intake and Output: 08/09/18 08/09/18 06:59 18:59 Intake Total 1275 Output Total 800 Balance 475 - Medications Medications: Current Medications Acetaminophen (Tylenol 325mg Tab) 650 mg PO Q6 PRN PRN Reason: Pain, Mild (1-3) Amlodipine Besylate (Norvasc) 5 mg PO DAILY [facility] Last Admin: 08/09/18 09:12 Dose: 5 mg Metoprolol Succinate (Toprol Xl) 50 mg PO DAILY [facility] Last Admin: 08/09/18 09:14 Dose: 50 mg Morphine Sulfate (Morphine) 2 mg IVP Q4 PRN PRN Reason: Pain, severe (8-10) Last Admin: 08/09/18 06:09 Dose: 2 mg Ondansetron HCl (Zofran Inj) 4 mg IVP Q4 PRN PRN Reason: Nausea/Vomiting Oxycodone/Acetaminophen (Percocet 5/325 Mg Tab) 1 tab PO Q4 PRN PRN Reason: Pain, Mild (1-3) Stop: 08/11/18 16:22 Last Admin: 08/09/18 09:13 Dose: 1 tab Oxycodone/Acetaminophen (Percocet 5/325 Mg Tab) 2 tab PO Q4 PRN PRN Reason: Pain, moderate (4-7) Stop: 08/11/18 16:22 - Labs Labs: 08/07/18 21:14 08/08/18 06:30 PT 12.0 Seconds (9.8-13.1) 08/07/18 21:14 INR 1.1 08/07/18 21:14 APTT 27.6 Seconds (25.6-37.1) 08/07/18 21:14 - Extremities Exam Additional comments: LUE: sensation intact to med/rad/ulnar nerve distrib. +ROM fingers flex/ext/add /abd, thumb flex/ext, cap refill <2 seconds splint intact Assessment and Plan (1) Distal radius fracture, left Assessment & Plan: POD#1 s/p ORIF left distal radius keep splint dry and intact elevate L hand above elbow encourage AROM of fingers Status: Acute (2) Fx coronoid proc ulna-closed Assessment & Plan: repeat CT shows no subluxation of elbow no intervention of coronoid fracture indicated will continue splint of elbow as well per Dr. Bowser f/u in office 1 week call for appt [phone] orthopedically stable for d/c Status: Acute Radiology Interpretation - Radiology Interpretation #2 Interpretation: atient Name / ID : KELLY Hernandez / [id number] Exam Date : 08/08/2018 18:56:58 ( Approved ) Study Comment : Sex / Age : M / 73Y Creator : Uli Snowden MD Dictator : Uli Snowden MD Motor Vehicle Technician : Seo Analyst : Uli Snowden MD Approver2 : Report Date : 08/09/2018 10:28:43 My Comment : Date of service: 08/08/2018 PROCEDURE: CT LEFT ELBOW WITHOUT CONTRAST HISTORY: L coranoid process fx, post manipulation COMPARISON: CT Left Upper Extremity without contrast 08/07/2018. TECHNIQUE: Volume CT acquisition of the left elbow was performed without intravenous contrast as requested. Reformatted dataset provided in sagittal axial coronal planes by various rendering technique. Radiation dose:Total exam DLP = 244.81 mGy-cm. This CT exam was performed using one or more of the following dose reduction techniques: Automated exposure control, adjustment of the mA and/or kV according to patient size, and/or use of iterative reconstruction technique. FINDINGS: Comminuted fracture of the coronoid process of the proximal ulna is reiterated with main fracture fragment appearing appearing largely reduced in the interval. No new fracture appreciable. A small fragment off the anterior/proximal margins of the olecranon process is appreciated, not significantly changed in position. No subluxation or dislocation appreciable. Radial head remains in tact and unremarkable appearing. Moderate hemarthrosis again evident. Limited peripheral soft tissue edema noted as well with polyurethane cast now placed at left forearm and elbow. IMPRESSION: Comminuted left ulnar coronoid process fracture again identified with major fracture fragment largely reduced in the interval. Tiny anterior/proximal olecranon process chip fracture again evident. No dislocation or subluxation evident. No new fracture appreciable. Hemarthrosis reiterated as well as peripheral soft tissue edema.
[2018-08-09 15:50] VITALS: PULSE 80
--- NOTE | 2018-08-09 16:24 | OP ---
PROCEDURE DATE: 08/08/2018 PREOPERATIVE DIAGNOSES: 1. Displaced comminuted left distal radius fracture. 2. Coronoid fracture, essentially nondisplaced, left elbow. POSTOPERATIVE DIAGNOSES: 1. Displaced comminuted metaphyseal distal radius fracture of the left wrist. 2. Compression of the median nerve at the wrist with hematoma in the carpal tunnel. 3. Tenosynovitis. 4. Coronoid process fracture. OPERATIONS PERFORMED: 1. Open reduction and internal fixation, displaced comminuted distal radius fracture, metaphyseal. 2. Release of transverse carpal ligament. 3. Partial median neurolysis. 4. Partial flexor tenosynovectomy. 5. Autograft and allograft bone graft. 6. Application of long-arm splint. 7. Evaluation left elbow under anesthesia and fluoroscopy. OPERATIVE FINDINGS: 1. Displaced comminuted left distal radius fracture. 2. Compression of the median nerve with hematoma in the carpal tunnel, tenosynovitis of the flexor tendons, and again the aforementioned coronoid fracture of the elbow. ESTIMATED BLOOD LOSS: 10 mL. Blood products given, none. DRAINS: No drains. POSTOPERATIVE CONDITION: Stable. TIME OF PROCEDURE: Time in the room 12:55, incision time 13:50. SPECIMENS REMOVED: Synovium, callus, and bone. 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 The patient presents after a fall on an outstretched wrist and presented to the Emergency Room and was stabilized, and after medical and cardiologic clearance by Dr. Heller, the patient was taken to surgery. Pros, cons, risks and benefits of surgical approach were discussed. The possibility of mechanical failure, infection, nerve injury, stiffness, and secondary or tertiary surgery were discussed. The patient could no longer stand the discomfort and wished the surgery to be accomplished. DESCRIPTION OF PROCEDURE: After having obtained informed consent, after having identified side, site and procedure and a critical pause/time-out, after the satisfactory induction of the anesthetic, the patient was identified as Uriel Falcon in the supine position with all bony prominences well padded. The left upper extremity was prepped and free draped in the usual fashion for upper extremity surgery. The tourniquet had been applied, but was not yet inflated. The magnification glasses of 2.0 were employed. This having been accomplished and under the surgeon's direction, the fluoroscope was positioned, video images were generated, therapeutic decisions were made therefrom. An incision was described in the median palmar crease, deviating radially at the distal crease and deviating back proximally in the interval between the flexor carpi radialis and the palmaris longus. The skin incision was carried down through the skin and subcutaneous tissue. A flap was raised at the elbow, taking great care to avoid injury to the superficial sensory branch of the median nerve. The transverse carpal ligament was identified. The palmar aponeurosis was identified. The transverse carpal ligament was identified; and this having been accomplished, there was found to be hematoma from the fracture in the carpal canal. This having been accomplished, release of the transverse carpal ligament was accomplished. Carpal tunnel release therefore was accomplished. Hematoma was evacuated. There was found to be evidence of tenosynovitis. Careful and partial tenosynovectomy was accomplished. Having identified the nerve, great care was taken to protect the superficial sensory branch of the median nerve as well as the motor branch. A careful neurolysis was accomplished. This having been accomplished, the fracture site was identified and the retractors were placed. The pronator quadratus was carefully divided. The fracture was reduced. This having been accomplished, the wound was thoroughly irrigated. The volar plate was applied and a sequential drill hole was drilled, sounded, and the appropriate sized screws were placed. Verification of position was offered on AP and lateral image intensification views. Autograft and allograft bone graft deployed. This having been accomplished, verification of position was offered on AP and lateral image intensification views. The wound was thoroughly irrigated. Bone grafting having been accomplished, at this point in time, under the surgeon's direction, the fluoroscope was positioned. The elbow was manipulated and the coronoid fracture was found to be intact and essentially nondisplaced. A well-padded long-arm splint was applied. Beto Bowser MD
--- NOTE | 2018-08-14 08:32 | PQF ---
PROVIDER RESPONSE TEXT: Partial flexor tenosynovectomy separate procedure within the operative sitting. Should be coded separ ately REVIEWER QUERY TEXT: Procedure Clarification PLEASE CLARIFY IF THE FOLLOWING PROCEDURE OF PARTIAL FLEXOR TENOSYNOVECTOMY IS INHERENT TO THE PROCED URE OR SEPARETELY CODED? Requirements for documentation of procedures now require additional specificity regarding the approac h, specific site (including laterality), all procedures performed, detailed information on associated devices and or implants utilized during the procedure and basic intent of the procedure. Your help i s needed in clarifying the following. Query created by: Lilo Aguero on 08/12/2018 1:24 PM Electronically signed by: Beto Bowser MD 08/14/2018 8:29 AM
== END 2018-08-09 15:30 | disposition home or self-care (01) | DRG 501 ==
LOC: H.ER 17:26 → H.ERHOLD 21:02 → H.MEDSURG1 23:17
PROVIDERS: ADMIT Student in an Organized Health Care Education/Training Program; ATTEND Student in an Organized Health Care Education/Training Program
PROC: 0PSJ04Z Reposition Left Radius with Internal Fixation Device, Open Approach (ICD-10-PCS; principal; 2018-08-08 12:30)
PROC: 01N50ZZ Release Median Nerve, Open Approach (ICD-10-PCS; 2018-08-08 12:30)
PROC: 0LB60ZZ Excision of Left Lower Arm and Wrist Tendon, Open Approach (ICD-10-PCS; 2018-08-08 12:30)
DX: S52.532A Colles' fracture of left radius, initial encounter for closed fracture (principal); S42.402A Unspecified fracture of lower end of left humerus, initial encounter for closed fracture; M25.00 Hemarthrosis, unspecified joint; S62.002A Unspecified fracture of navicular [scaphoid] bone of left wrist, initial encounter for closed fracture; E87.6 Hypokalemia; S52.042A Displaced fracture of coronoid process of left ulna, initial encounter for closed fracture; S52.022A Displaced fracture of olecranon process without intraarticular extension of left ulna, initial encounter for closed fracture; E78.5 Hyperlipidemia, unspecified; G56.02 Carpal tunnel syndrome, left upper limb; I10 Essential (primary) hypertension; I44.7 Left bundle-branch block, unspecified; M65.9 Synovitis and tenosynovitis, unspecified; S52.602A Unspecified fracture of lower end of left ulna, initial encounter for closed fracture; W00.0XXA Fall on same level due to ice and snow, initial encounter; F12.90 Cannabis use, unspecified, uncomplicated; M25.432 Effusion, left wrist; R01.1 Cardiac murmur, unspecified